=== PATIENT | female | born 1975 | race African-American/Black ===

== ENCOUNTER 2018-04-15 08:22 | Emergency (ER) | payer OTHER ==
[2018-04-15] MEDS: MECLIZINE 12.5 MG TAB PO (10:02)
[2018-04-15] MEDS: IBUPROFEN 800 MG TAB PO (10:02)
[2018-04-15] MEDS: ONDANSETRON (ODT) 4 MG TAB ODT (10:05)
[2018-04-15 10:17] LABS: URINE BLOOD (Dip) POC Negative (NEGATIVE); URINE GLUCOSE (Dip) POC Negative (NEGATIVE); URINE KETONES (Dip) POC 2+ (NEGATIVE); URINE LEUKOCYTE EST (Dip) POC Trace (NEGATIVE); URINE NITRITE (Dip) POC Negative (NEGATIVE); URINE TOTAL PROTEIN POC 2+ (NEGATIVE)
[2018-04-15 10:17] LABS: URINE PH (Dip) POC 8.5 (5.0-8.5)
[2018-04-15] MEDS: ONDANSETRON 4 MG INJ IV (10:24)
[2018-04-15 10:41] LABS: ADD MAN DIFF? NO
[2018-04-15 10:44] LABS: WHITE BLOOD COUNT 6.9 10^3/ul (4.8-10.8)
[2018-04-15 10:44] LABS: BASOPHILS % 0.3 % (0.0-2.0); EOSINOPHILS # 0.1 10^3/ul (0.0-0.5); HEMATOCRIT 37.9 % (37.0-47.0); HEMOGLOBIN 12.1 g/dl (12.0-16.0); LYMPHOCYTES # 1.9 10^3/ul (0.8-2.9); LYMPHOCYTES % 27.5 % (15.0-51.0); MEAN CORPUSCULAR HEMOGLOBIN 25.5 pg (29.0-33.0); MEAN CORPUSCULAR HGB CONC 31.9 g/dl (32.0-37.0); MONOCYTE # 0.4 10^3/ul (0.3-0.9); MONOCYTES % 6.2 % (0.0-11.0); NEUTROPHIL # 4.5 10^3/ul (1.6-7.5); NEUTROPHILS % 64.9 % (39.0-77.0); PLATELET COUNT 323 10^3/UL (140-415); RED BLOOD COUNT 4.74 10^6/ul (4.20-5.40); RED CELL DISTRIBUTION WIDTH 15.4 % (11.5-14.5)
[2018-04-15 11:02] LABS: ANION GAP 15 (8-16); BLOOD UREA NITROGEN 14 mg/dl (7-20); CALCIUM 9.4 mg/dl (8.4-10.2); CARBON DIOXIDE 25 mmol/L (21-31); CHLORIDE 107 mmol/L (97-110); CREATININE 0.62 mg/dl (0.44-1.00); GLUCOSE 103 mg/dl (70-220); POTASSIUM 3.9 mmol/L (3.5-5.1); SODIUM 143 mmol/L (135-144)
== END 2018-04-15 11:48 | disposition home or self-care (01) ==
LOC: FTE 08:22
DX: R42 Dizziness and giddiness (principal)
CPT/HCPCS: 80048; 81003; 81025; 85025; 99283